=== PATIENT | male | born 1985 | race African-American/Black ===

== ENCOUNTER 2020-01-25 11:43 | Emergency (ER) | payer OTHER, MEDICAID, SELFPAY ==
[2020-01-25 11:48] VITALS: BP 138/89; PULSE 76; RESP 16; TEMP 36.7; O2SAT 100
--- NOTE | 2020-01-25 12:01 | ED.GENADULT ---
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 States he has been trying to drink enough fluid. Today begins to feel a bit nausea in addition to other symptoms Related Data Home Medications Medication Instructions Recorded Confirmed No Home Medications 01/25/20 01/25/20 Allergies Allergy/AdvReac Type Severity Reaction Status Date / Time No Known Allergies Allergy Verified 01/25/20 12:06 Review of Systems Review of Systems: Narrative: CONSTITUTIONAL: Denies fever, chills, sweats. EYES: Denies visual changes, redness, discharge. ENT: Denies rhinorrhea, congestion, sore throat, otalgia. CARDIOVASCULAR: Denies chest pain, palpitations, edema. RESPIRATORY: Denies dyspnea, wheezing, cough GASTROINTESTINAL: Denies abdominal pain, nausea, vomiting, diarrhea. GENITOURINARY: Denies dysuria, hematuria, abnormal discharge SKIN: Denies rash or itching. NEUROLOGIC: Denies numbness, or focal weakness. PSYCHIATRIC: Denies anxiety or depression. Generally feels nauseated and not like self, complaining of body aches, headache PMFSH Family History Family History Other No acute medical problems Social History Social History (Updated 01/25/20 @ 12:07 by Mimi Noriega CNP) Smoking packs per day: 0.5 Smoking cigarettes per day: 10.0 Smoking status: Current every day smoker Alcohol intake: current Comments At time of signature, I agree with nursing past medical, surgical, social and family history. There is no relevant family history pertinent to the presenting complaint. Exam Narrative: Exam Narrative: GENERAL: This is a well-nourished, well-developed patient, in mild distress. HEAD: normocephalic, atraumatic. EYES: Sclera clear/white. Vision is grossly intact. EARS: External ears normal. Hearing grossly intact. NOSE: External nose normal without nasal discharge, nares without redness, no rhinorrhea. THROAT: Mucous membranes moist, posterior pharynx erythema with no induration or ulceration NECK: Neck supple, non-tender CARDIOVASCULAR: Regular rate and rhythm without murmurs, gallops, or rubs. RESPIRATORY: Clear to auscultation. Breath sounds equal bilaterally. No wheezes, rales, or rhonchi. GASTROINTESTINAL: Abdomen soft, non-tender, SKIN: warm, intact with no suspicious lesions or rash, good texture and turgor. NEURO: awake, alert, and oriented to person, place and time. There were no obvious focal neurologic abnormalities. Steady gait EXTREMITIES: Normal range of motion. BACK: Nontender without deformity Course Course Emergency Course: Toradol IM given Directions for hydration -rest -patient socially isolate until results of test -sent for covid testing tomorrow at [place] Vital Signs Vital signs: Vital Signs Temperature 98.0 F 01/25/20 11:48 Pulse Rate 76 01/25/20 11:48 Respiratory Rate 16 01/25/20 11:48 Blood Pressure 138/89 01/25/20 11:48 Pulse Oximetry 100 01/25/20 11:48 Temperature 98.0 F 01/25/20 11:48 Pulse Rate 76 01/25/20 11:48 Respiratory Rate 16 01/25/20 11:48 Blood Pressure 138/89 01/25/20 11:48 Pulse Oximetry 100 01/25/20 11:48 Medical Decision Making Differential Diagnosis Differential Diagnosis: URI versus GI virus versus COVID versus dehydration Vital Signs Vital Signs: Vital Signs Temperature 98.0 F 01/25/20 11:48 Pulse Rate 76 01/25/20 11:48 Respiratory Rate 16 01/25/20 11:48 Blood Pressure 138/89 01/25/20 11:48 Pulse Oximetry 100 01/25/20 11:48 T
[2020-01-25] MEDS: KETOROLAC (*BKC) 60 MG/2 ML VIAL IM (12:23)
== END 2020-01-25 12:45 | disposition home or self-care (01) ==
PROVIDERS: Emergency Provider Nurse Practitioner; PCP Internal Medicine
DX: R51 Headache (principal); Z20.828 Contact with and (suspected) exposure to other viral communicable diseases; F17.210 Nicotine dependence, cigarettes, uncomplicated
CPT/HCPCS: 96372; 99213; G0463; J1885